=== PATIENT | female | born 1985 | race Caucasian/White ===

== ENCOUNTER 2016-08-24 12:39 | Emergency (ER) | payer BC, OTHER ==
[~2016-08-24] VITALS: Ht 165.1 cm; Wt 54.4 kg
[~2016-08-24 12:39] MED LIST: ALPR0.25 PO; CETI10CA PO; IBUP-1060 PO
[2016-08-24 13:15] VITALS: BP 117/64
[2016-08-24] MEDS ORDERED: PRED20TA PO (14:34)
--- NOTE | 2016-08-24 14:34 | PHYS DOC ---
Past Medical History Past Medical History: Anxiety, Asthma, Bronchitis, Pneumonia Past Surgical History: Lumbar Laminectomy, Tubal ligation Additional Past Surgical Histo: SINUS SURG X 2 Alcohol Use: Occasionally Drug Use: None Adult General Chief Complaint Chief Complaint: ALLERGIC REACTION [facility] HPI Patient is a 31 year old female presents emergency department stating that she' s had a rash for approximately one week. She states that this started her right hand and has progressed throughout her body. She denies any new soaps, new detergents new clothing new foods or any new medication. She states that she was out hiking when she noticed that she had a blister on her right hand. She states that the blister from the hand has resolved although she has the red raised areas throughout the rest of her body. She does state she has a slight sore throat. She denies any shortness of air difficulty breathing. She denies any drainage or discharge coming from any of the sites. Patient states she was seen at urgent care she was placed on a Medrol Dosepak and was prescribed topical medication with no relief. Patient states she did take some Benadryl which seemed to have helped with some of the discomfort. States that the rash itches. She denies any fever, chills or any nausea vomiting. Review of Systems Review of Systems Constitutional: Denies fever or chills [] Eyes: Denies change in visual acuity, redness, or eye pain [] HENT: Denies nasal congestion or sore throat [] Respiratory: Denies cough or shortness of breath [] Cardiovascular: No additional information not addressed in HPI [] GI: Denies abdominal pain, nausea, vomiting, bloody stools or diarrhea [] : Denies dysuria or hematuria [] Musculoskeletal: Denies back pain or joint pain [] Integument: rash denies skin lesions [] Neurologic: Denies headache, focal weakness or sensory changes [] Endocrine: Denies polyuria or polydipsia [] Allergies Allergies Allergies Coded Allergies Type Severity Reaction Last Updated Verified amoxicillin Allergy Intermediate RASH 01/29/15 No cephalexin Allergy Intermediate RASH 01/29/15 No latex Allergy Intermediate RASH 01/29/15 No Physical Exam Physical Exam Constitutional: Well developed, well nourished, no acute distress, non-toxic appearance. [] HENT: Normocephalic, atraumatic, bilateral external ears normal, oropharynx moist, no oral exudates, nose normal. [] Eyes: PERRLA, EOMI, conjunctiva normal, no discharge. [] Neck: Normal range of motion, no tenderness, supple, no stridor. [] Cardiovascular:Heart rate regular rhythm, no murmur [] Lungs & Thorax: Bilateral breath sounds clear to auscultation [] Abdomen: Bowel sounds normal, soft, no tenderness, no masses, no pulsatile masses. [] Skin: Warm, dry, no erythema. Patient presents with rash to the upper extremities and torso, No drainage, or discharge noted form the site. patients rash appears red raises pustule type. Back: No tenderness Extremities: No tenderness, no cyanosis, no clubbing, ROM intact, no edema. [] Neurologic: Alert and oriented X 3, normal motor function, normal sensory function, no focal deficits noted. [] Psychologic: Affect normal, judgement normal, mood normal. [] Current Patient Data Vital Signs Vital Signs Date Time Temp Pulse Resp B/P (MAP) Pulse Ox O2 Delivery O2 Flow Rate FiO2 08/24/16 13:15 98.0 70 18 95 Room Air 98.0 EKG EKG [] Radiology/Procedures Radiology/Procedures [] Course & Med Decision Making Course & Med Decision Making Pertinent Labs and Imaging studies reviewed. (See chart for details) Rapid strep negative. Patient will be placed on Prednisone with recommendations to take benadryl every 4-6 hours she was instructed this medication will cause drowsiness do not take if you need to be alert and oriented. Keep the areas clean dry and cool. Followup with primary care provider in 3-5 days. Return to emergency department as needed for sign and symptoms that become worse. Patient agree with discharge instructions, treatment regimen and followup recommendations. [] Dragon Disclaimer Dragon Disclaimer This electronic medical record was generated, in whole or in part, using a voice recognition dictation system. Departure Departure Impression: Primary Impression: Contact dermatitis Disposition: 01 HOME, SELF-CARE Condition: STABLE Referrals: MARCO COOPER MD (PCP) Patient Instructions: Contact Dermatitis, [id number] Additional Instructions: Activity as tolerated Medication as prescribed Benadryl 25 mg every 4-6 hours. This medication will cause drowsiness do not take if you need to be alert and oriented. Do not take your Claritin with Benadryl as this will cause decrease urine output and cause you to be thirsty Keep the areas clean cool and dry Followup with primary care provider in 3-5 days Return to emergency department as needed for signs and symptoms that become worse. Scripts Prednisone (PREDNISONE) 20 Mg Tablet 40 MG PO DAILY, #14 TAB Prov: BISI DAVALOS APRN 08/24/16 BISI DAVALOS APRN August 24, 2016 14:34
[2016-08-24] MEDS ORDERED: methylPREDNISolone SOD SUCC PF 125 MG/2 ML VIAL. IM ONE (14:45)
[2016-08-24 15:02] LABS: NEGATIVE OBC STREP NEG; POSITIVE OBC STREP POS
== END 2016-08-24 14:52 | disposition home or self-care (01) ==
LOC: ER 12:39
DX: L25.9 Unspecified contact dermatitis, unspecified cause (principal); J02.9 Acute pharyngitis, unspecified; J45.909 Unspecified asthma, uncomplicated; F41.9 Anxiety disorder, unspecified; Z87.01 Personal history of pneumonia (recurrent); Z98.890 Other specified postprocedural states; Z98.51 Tubal ligation status; Z88.1 Allergy status to other antibiotic agents; Z91.040 Latex allergy status
CPT/HCPCS: 87070; 87880; 96372; 99283; J2930

== ENCOUNTER 2017-01-15 17:28 | Emergency (ER) | payer OTHER ==
[~2017-01-15] VITALS: Ht 162.6 cm; Wt 54.4 kg
[~2017-01-15 17:28] MED LIST changes: +PRED20TA PO
[2017-01-15] MEDS ORDERED: IV NORMAL SALINE 1000ML BAG 1,000 ML IV SCH (18:06)
--- NOTE | 2017-01-15 18:07 | PHYS DOC ---
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 She states the pain started this morning and that has worsened throughout the day. The pain is more in her right upper quadrant. She's had 2 episodes of vomiting. No diarrhea. No recent travel. She did eat out last night at [employer]. She states she has similar pain to this "years ago" when she had "gallbladder issues ". She is not had any surgery on her abdomen. No blood in her emesis. No fever. Patient also just had extensive allergy testing performed by her program development specialist and she has "wheat allergy" which she states "might have flared up as well because I went off my diet plan this past week." She is intermittently breaking out in hives "and I couldn't keep my benadryl down." Review of Systems Review of Systems Constitutional: Denies fever or chills Eyes: Denies change in visual acuity, redness, or eye pain HENT: Denies nasal congestion or sore throat Respiratory: Denies cough or shortness of breath Cardiovascular: No chest pain GI: POS abdominal pain, POS nausea, vomiting, NO bloody stools or diarrhea : Denies dysuria or hematuria Musculoskeletal: Denies back pain or joint pain Integument: Denies rash or skin lesions Neurologic: Denies headache, focal weakness or sensory changes Current Medications Current Medications Current Medications Medications (Trade) Dose Ordered Sig/Mateusz Start Time Stop Time Status Last Admin Dose Admin Fentanyl Citrate (Fentanyl 2ml Vial) 50 mcg PRN Q15MIN PRN 01/15/17 18:15 01/16/17 18:14 01/15/17 18:20 50 MCG Ondansetron HCl (Zofran) 4 mg 1X ONCE 01/15/17 18:45 01/15/17 18:46 DC 01/15/17 18:21 4 MG Sodium Chloride 1,000 ml @ 1,000 mls/hr Q1H 01/15/17 18:06 01/15/17 19:05 01/15/17 18:18 1,000 MLS/HR Allergies Allergies Allergies Coded Allergies Type Severity Reaction Last Updated Verified amoxicillin Allergy Intermediate RASH 01/29/15 No cephalexin Allergy Intermediate RASH 01/29/15 No latex Allergy Intermediate RASH 01/29/15 No Physical Exam Physical Exam Constitutional: Well developed, well nourished, no acute distress, non-toxic appearance. HENT: Normocephalic, atraumatic, bilateral external ears normal, oropharynx moist, no oral exudates, nose normal. Eyes: PERRLA, EOMI, conjunctiva normal, no discharge. Neck: Normal range of motion, no tenderness, supple, no stridor. Cardiovascular:Heart rate regular rhythm, no murmur Lungs & Thorax: Bilateral breath sounds clear to auscultation Abdomen: Bowel sounds normal, soft, POS tenderness to right upper quadrant; no rebound or guarding, no masses, no pulsatile masses. Skin: Warm, dry, no erythema, no rash. Back: No tenderness, no CVA tenderness. Extremities: No tenderness, no cyanosis, no clubbing, ROM intact, no edema. Neurologic: Alert and oriented X 3, normal motor function, normal sensory function, no focal deficits noted. Psychologic: Affect normal, judgement normal, mood normal. Current Patient Data Vital Signs Vital Signs Date Time Temp Pulse Resp B/P (MAP) Pulse Ox O2 Delivery O2 Flow Rate FiO2 01/15/17 18:20 18 98 Room Air 01/15/17 17:59 97.8 69 132/90 (104) 97.8 Lab Values Laboratory Tests Test 01/15/17 17:51 01/15/17 18:01 01/15/17 18:04 Urine Collection Type Unknown Urine Color Yellow Urine Clarity Cloudy Urine pH 8.0 Urine Specific Armstrong 1.015 Urine Protein Negative mg/dL (NEG-TRACE) Urine Glucose (UA) Negative mg/dL (NEG) Urine Ketones (Stick) Negative mg/dL (NEG) Urine Blood Negative (NEG) Urine Nitrite Negative (NEG) Urine Bilirubin Negative (NEG) Urine Urobilinogen Dipstick 0.2 mg/dL (0.2 mg/dL) Urine Leukocyte Esterase Negative (NEG) Urine RBC 0 /HPF (0-2) Urine WBC 0 /HPF (0-4) Urine Squamous Epithelial Cells Mod /LPF Urine Amorphous Sediment Present /HPF Urine Bacteria Few /HPF (0-FEW) Urine Mucus Mod /LPF White Blood Count 10.6 x10^3/uL (4.0-11.0) Red Blood Count 4.24 x10^6/uL (3.50-5.40) Hemoglobin 14.0 g/dL (12.0-15.5) Hematocrit 41.1 % (36.0-47.0) Mean Corpuscular Volume 97 fL (79-100) Mean Corpuscular Hemoglobin 33 pg (25-35) Mean Corpuscular Hemoglobin Concent 34 g/dL (31-37) Red Cell Distribution Width 13.1 % (11.5-14.5) Platelet Count 301 x10^3/uL (140-400) Neutrophils (%) (Auto) 66 % (31-73) Lymphocytes (%) (Auto) 26 % (24-48) Monocytes (%) (Auto) 6 % (0-9) Eosinophils (%) (Auto) 1 % (0-3) Basophils (%) (Auto) 1 % (0-3) Neutrophils # (Auto) 7.1 x10^3uL (1.8-7.7) Lymphocytes # (Auto) 2.7 x10^3/uL (1.0-4.8) Monocytes # (Auto) 0.6 x10^3/uL (0.0-1.1) Eosinophils # (Auto) 0.1 x10^3/uL (0.0-0.7) Basophils # (Auto) 0.1 x10^3/uL (0.0-0.2) Sodium Level 143 mmol/L (136-145) Potassium Level 3.8 mmol/L (3.5-5.1) Chloride Level 105 mmol/L (98-107) Carbon Dioxide Level 30 mmol/L (21-32) Anion Gap 8 (6-14) Blood Urea Nitrogen 7 mg/dL (7-20) Creatinine 0.8 mg/dL (0.6-1.0) Estimated GFR (Cockcroft-Gault) 83.7 BUN/Creatinine Ratio 9 (6-20) Glucose Level 99 mg/dL (70-99) Calcium Level 9.7 mg/dL (8.5-10.1) Total Bilirubin 0.4 mg/dL (0.2-1.0) Aspartate Amino Transferase (AST) 18 U/L (15-37) Alanine Aminotransferase (ALT) 25 U/L (14-59) Alkaline Phosphatase 74 U/L (46-116) Total Protein 7.7 g/dL (6.4-8.2) Albumin 4.2 g/dL (3.4-5.0) Albumin/Globulin Ratio 1.2 (1.0-1.7) Lipase 137 U/L (73-393) POC Urine HCG, Qualitative Hcg negative (Negative) Laboratory Tests 01/15/17 18:01 Laboratory Tests 01/15/17 18:01 Course & Med Decision Making Course & Med Decision Making Reviewed prior records. My differential for abdominal pain includes but is not limited to appendicitis; cholelithiasis or cholecystitis; renal stones; ureterolithiasis; pancreatitis; urinary tract infection; bowel obstruction; irritable bowel, . IV NS, IV fentanyl and zofran. May be biliary colic. At 1900 PM: lab is unremarkable. No evidence of acute cholecystitis or pancreatitis. We'll treat symptomatically with dietary restrictions. She will need follow-up with her primary care physician and further outpatient evaluation with possibility of ultrasound or PIPIDA scan. Return if follow-up instructions were given to the patient and her stomach and other. I have spoken with the patient and/or caregivers. I have explained the patient' s condition, diagnosis and treatment plan based on the information available to me at this time. I have answered the patient's and/or caregiver's questions and addressed any concerns. The patient and/or caregivers have as good an understanding of the patient's diagnosis, condition and treatment plan as can be expected at this point. The patient's condition is stable and appropriate for discharge from the emergency department. The patient will pursue further outpatient evaluation with the primary care physician or other designated or consulting physician as outlined in the discharge instructions. The patient and/or caregivers are agreeable to this plan of care and follow-up instructions have been explained in detail. The patient and/or caregivers have received these instructions in written format and have expressed an understanding of the discharge instructions. The patient and/or caregivers are aware that any significant change in condition or worsening of symptoms should prompt an immediate return to this or the closest emergency department or a call to 911. Michael Disclaimer Dragon Disclaimer This electronic medical record was generated, in whole or in part, using a voice recognition dictation system. Departure Departure Impression: Primary Impression: Abdominal pain Additional Impressions: Nausea and vomiting Food allergy Disposition: 01 HOME, SELF-CARE Referrals: MARCO COOPER MD (PCP) Patient Instructions: Biliary Colic Additional Instructions: Monitoring your diet closely. Call Dr. Cooper's office in the morning to set up a follow-up appointment for further evaluation. Scripts Ondansetron (ZOFRAN ODT) 4 Mg Tab.rapdis 4 MG PO BID Y for NAUSEA/VOMITING, #10 TAB Prov: BEV PAULINO MD 01/15/17 Problem Qualifiers Primary Impression: Abdominal pain Abdominal location: right upper quadrant Qualified Codes: R10.11 - Right upper quadrant pain Additional Impressions: Nausea and vomiting Vomiting type: unspecified Vomiting Intractability: non-intractable Qualified Codes: R11.2 - Nausea with vomiting, unspecified BEV PAULINO MD Jan 15, 2017 18:07
[2017-01-15 18:12] LABS: BASO # 0.1 x10^3/uL (0.0-0.2); BASO % 1 % (0-3); EOS % 1 % (0-3); HEMATOCRIT 41.1 % (36.0-47.0); LYMPH # 2.7 x10^3/uL (1.0-4.8); LYMPH % 26 % (24-48); MEAN CORPUSCULAR HEMOGLOBIN 33 pg (25-35); MEAN CORPUSCULAR HGB CONC 34 g/dL (31-37); MEAN CORPUSCULAR VOLUME 97 fL (79-100); MONO % 6 % (0-9); NEUT % 66 % (31-73); PLATELET COUNT 301 x10^3/uL (140-400); RED BLOOD COUNT 4.24 x10^6/uL (3.50-5.40); RED CELL DISTRIBUTION WIDTH 13.1 % (11.5-14.5); WHITE BLOOD COUNT 10.6 x10^3/uL (4.0-11.0)
[2017-01-15 18:14] LABS: BILIRUBIN,URINE NEGATIVE (NEG); GLUCOSE,URINE NEGATIVE (NEG); NITRITE,URINE NEGATIVE (NEG); PROTEIN,URINE NEGATIVE (NEG-TRACE); UROBILINOGEN,URINE 0.2 mg/dL (0.2 mg/dL)
[2017-01-15] MEDS ORDERED: fentaNYL PF VIAL 100 MCG/2 ML VIAL IV PRN (18:15)
[2017-01-15 18:21] LABS: BACTERIA,URINE FEW /HPF (0-FEW); RBC,URINE 0 /HPF (0-2); SQUAMOUS EPITHELIAL CELL,UR MOD /LPF; WBC,URINE 0 /HPF (0-4)
[2017-01-15 18:37] LABS: CALCIUM 9.7 mg/dL (8.5-10.1); CREATININE 0.8 mg/dL (0.6-1.0); GFR 83.7; POTASSIUM 3.8 mmol/L (3.5-5.1)
[2017-01-15 18:43] LABS: ALBUMIN 4.2 g/dL (3.4-5.0); ALBUMIN/GLOBULIN RATIO 1.2 (1.0-1.7); TOTAL BILIRUBIN 0.4 mg/dL (0.2-1.0); TOTAL PROTEIN 7.7 g/dL (6.4-8.2)
[2017-01-15] MEDS ORDERED: ONDANSETRON PF 4 MG/2 ML VIAL. IV ONE (18:45)
[2017-01-15] MEDS ORDERED: ONDA4TAB10 PO (19:09)
[2017-01-15 19:25] VITALS: BP 133/90
[2017-01-15] MEDS ORDERED: fentaNYL PF VIAL 100 MCG/2 ML VIAL IV ONE (19:45)
[2017-01-15] MEDS ORDERED: diphenhydrAMINE 50 MG/ML VIAL IVP ONE (19:45)
== END 2017-01-15 19:32 | disposition home or self-care (01) ==
LOC: ER 17:28
DX: R10.11 Right upper quadrant pain (principal); R11.2 Nausea with vomiting, unspecified; J45.909 Unspecified asthma, uncomplicated; F17.210 Nicotine dependence, cigarettes, uncomplicated; T78.1XXA Other adverse food reactions, not elsewhere classified, initial encounter; X58.XXXA Exposure to other specified factors, initial encounter
CPT/HCPCS: 36415; 80053; 81001; 81025; 83690; 85025; 96361; 96374; 96375; 96376; 99284; J1200; J2405; J3010; J7030

== ENCOUNTER 2017-03-07 02:26 | Emergency (ER) | payer OTHER ==
[~2017-03-07 02:26] MED LIST changes: +ONDA4TAB10 PO
--- NOTE | 2017-03-07 03:24 | PHYS DOC ---
Past Medical History Past Medical History: No Pertinent History Additional Past Medical Histor: Vestibular Neuritis (Brain MRI neg 08/2015); alopecia Past Surgical History: Other Additional Past Surgical Histo: sinus Alcohol Use: Occasionally Drug Use: None Adult General Chief Complaint Chief Complaint: EARACHE/EAR PAIN [facility] HPI Patient is a 31 year old female who presents with sore throat and left ear pain. She states it woke her up tonight. She denies any fevers chills nausea or vomiting. Review of Systems Review of Systems Constitutional: Denies fever or chills [] Eyes: Denies change in visual acuity, redness, or eye pain [] HENT: Positive for nasal congestion and sore throat Respiratory: Denies cough or shortness of breath [] Cardiovascular: No additional information not addressed in HPI [] GI: Denies abdominal pain, nausea, vomiting, bloody stools or diarrhea [] : Denies dysuria or hematuria [] Musculoskeletal: Denies back pain or joint pain [] Integument: Denies rash or skin lesions [] Neurologic: Denies headache, focal weakness or sensory changes [] Endocrine: Denies polyuria or polydipsia [] All other systems were reviewed and found to be within normal limits, except as documented in this note. Current Medications Current Medications Current Medications Medications (Trade) Dose Ordered Sig/[facility] Start Time Stop Time Status Last Admin Dose Admin Acetaminophen (Tylenol) 1,000 mg 1X ONCE 03/07/17 03:30 03/07/17 03:31 DC 03/07/17 03:30 1,000 MG Azithromycin (Zithromax) 500 mg 1X ONCE 03/07/17 05:30 03/07/17 05:40 DC 03/07/17 05:30 500 MG Allergies Allergies Allergies Coded Allergies Type Severity Reaction Last Updated Verified amoxicillin Allergy Intermediate RASH 01/29/15 No cephalexin Allergy Intermediate RASH 01/29/15 No latex Allergy Intermediate RASH 01/29/15 No Physical Exam Physical Exam Constitutional: Well developed, well nourished, no acute distress, non-toxic appearance. [] HENT: Normocephalic, atraumatic, bilateral external ears normal, oropharynx moist, no oral exudates, nose normal. [] Eyes: PERRLA, EOMI, conjunctiva normal, no discharge. [] Neck: Normal range of motion, no tenderness, supple, no stridor. No anterior cervical lymphadenopathy appreciated Cardiovascular:Heart rate regular rhythm, no murmur [] Lungs & Thorax: Bilateral breath sounds clear to auscultation [] Abdomen: Bowel sounds normal, soft, no tenderness, no masses, no pulsatile masses. [] Skin: Warm, dry, no erythema, no rash. [] Back: No tenderness, no CVA tenderness. [] Extremities: No tenderness, no cyanosis, no clubbing, ROM intact, no edema. [] Neurologic: Alert and oriented X 3, normal motor function, normal sensory function, no focal deficits noted. [] Psychologic: Affect normal, judgement normal, mood normal. [] Current Patient Data Vital Signs Vital Signs Date Time Temp Pulse Resp B/P (MAP) Pulse Ox O2 Delivery O2 Flow Rate FiO2 03/07/17 05:35 98.0 69 110/64 (79) 99 98.0 03/07/17 02:50 18 Room Air Lab Values Laboratory Tests Test 03/07/17 03:48 Group A Streptococcus Rapid Positive (NEGATIVE) EKG EKG [] Radiology/Procedures Radiology/Procedures [] Impressions: Strep throat Course & Med Decision Making Course & Med Decision Making Pertinent Labs and Imaging studies reviewed. (See chart for details) Strep throat came back back positive. Patient has an allergy to penicillin and therefore she was discharged with a Z-Noe. Return precautions given. She is agreeable plan being discharged stable condition at this time. Dragon Disclaimer Dragon Disclaimer This electronic medical record was generated, in whole or in part, using a voice recognition dictation system. Departure Departure Impression: Primary Impression: Strep throat Disposition: 01 HOME, SELF-CARE Condition: STABLE Referrals: MARCO COOPER MD (PCP) Patient Instructions: Strep Throat Additional Instructions: You have strep throat need take antibiotic for the next 5 days. Return back to ER if you have trouble swallowing, breathing, high fevers, or other concerns Scripts Azithromycin (AZITHROMYCIN TABLET) 250 Mg Tablet 1 PKG PO UD, #6 TAB Prov: KEZIA BREWER MD 03/07/17 KEZIA BREWER MD Mar 07, 2017 03:24
[2017-03-07] MEDS ORDERED: ACETAMINOPHEN 500 MG TABLET PO ONE (03:30)
[2017-03-07] MEDS ORDERED: AZIT250T6 PO (05:28)
[2017-03-07] MEDS ORDERED: AZITHROMYCIN 250 MG TABLET. PO ONE (05:30)
[2017-03-07 05:35] VITALS: BP 110/64
[2017-03-07 07:46] LABS: NEGATIVE OBC STREP NEG; POSITIVE OBC STREP POS
== END 2017-03-07 05:41 | disposition home or self-care (01) ==
LOC: ER 02:26
DX: J02.0 Streptococcal pharyngitis (principal); H92.02 Otalgia, left ear; Z88.1 Allergy status to other antibiotic agents; Z88.0 Allergy status to penicillin; Z91.040 Latex allergy status
CPT/HCPCS: 87880; 99283; Q0144

== ENCOUNTER → 2017-04-14 | Outpatient (CLI) | payer OTHER | END | disposition home or self-care (01) | LOC: KCIC 11:22 | DX: G89.29 Other chronic pain (principal); M25.562 Pain in left knee; M25.561 Pain in right knee | CPT/HCPCS: 73562 ==

== ENCOUNTER → 2017-06-29 | Outpatient (CLI) | payer OTHER | END | disposition home or self-care (01) | LOC: KCIC MRI 08:58 | DX: J32.9 Chronic sinusitis, unspecified (principal) | CPT/HCPCS: 70551 ==

== ENCOUNTER 2017-08-16 10:31 | Inpatient (IN) | payer OTHER ==
[2017-08-16] MEDS: HYDROcodone/APAP 5/325MG 1 TAB TABLET PO ×2 (11:56→21:42)
[2017-08-16 12:07] LABS: ADD MAN DIFF? NO
[2017-08-16 12:11] LABS: BASO % 1 % (0-3); EOS # 0.1 x10^3/uL (0.0-0.7); EOS % 1 % (0-3); HEMATOCRIT 42.8 % (36.0-47.0); HEMOGLOBIN 14.8 g/dL (12.0-15.5); LYMPH % 33 % (24-48); MEAN CORPUSCULAR HEMOGLOBIN 34 pg (25-35); MEAN CORPUSCULAR HGB CONC 35 g/dL (31-37); MEAN CORPUSCULAR VOLUME 98 fL (79-100); MONO # 0.4 x10^3/uL (0.0-1.1); MONO % 6 % (0-9); NEUT # 3.6 x10^3uL (1.8-7.7); NEUT % 59 % (31-73); PLATELET COUNT 277 x10^3/uL (140-400); RED BLOOD COUNT 4.38 x10^6/uL (3.50-5.40); RED CELL DISTRIBUTION WIDTH 13.7 % (11.5-14.5); WHITE BLOOD COUNT 6.2 x10^3/uL (4.0-11.0)
[2017-08-16 12:21] LABS: ALBUMIN/GLOBULIN RATIO 1.2 (1.0-1.7); ALK PHOS 60 U/L (46-116); ALT (SGPT) 18 U/L (14-59); ANION GAP 9 (6-14); AST (SGOT) 12 U/L (15-37); BLOOD UREA NITROGEN 8 mg/dL (7-20); BUN/CREATININE RATIO 13 (6-20); CALCIUM 8.9 mg/dL (8.5-10.1); CARBON DIOXIDE 29 mmol/L (21-32); CHLORIDE 106 mmol/L (98-107); CREATININE 0.6 mg/dL (0.6-1.0); GFR 115.9; GLUCOSE 84 mg/dL (70-99); POTASSIUM 3.9 mmol/L (3.5-5.1); SODIUM 144 mmol/L (136-145); TOTAL BILIRUBIN 0.3 mg/dL (0.2-1.0); TOTAL PROTEIN 7.3 g/dL (6.4-8.2)
[2017-08-16] MEDS: fentaNYL PF VIAL 100 MCG/2 ML VIAL IV ×4 (13:13→21:42)
[2017-08-16] MEDS: IV DEXTROSE 5%-LACT RINGERS 1,000 ML IV (13:34)
[2017-08-16] MEDS: SINCALIDE IV (15:15)
[2017-08-16] MEDS: NORMAL SALINE IV (15:15)
[2017-08-16 17:07] LABS: BILIRUBIN,URINE NEGATIVE (NEG); CLARITY,URINE CLEAR; COLOR,URINE YELLOW; GLUCOSE,URINE NEGATIVE (NEG); NITRITE,URINE NEGATIVE (NEG); PROTEIN,URINE NEGATIVE (NEG-TRACE); UROBILINOGEN,URINE 0.2 mg/dL (0.2 mg/dL)
[2017-08-16 17:12] LABS: LIPASE 182 U/L (73-393)
[2017-08-16 17:25] LABS: AMORPHOUS SEDIMENT,UR PRESENT /HPF; BACTERIA,URINE 0 /HPF (0-FEW); RBC,URINE 0 /HPF (0-2); SQUAMOUS EPITHELIAL CELL,UR OCC /LPF; WBC,URINE OCC /HPF (0-4)
[2017-08-17] MEDS: fentaNYL PF VIAL 100 MCG/2 ML VIAL IV ×4 (04:16→21:09)
[2017-08-17] MEDS: IV DEXTROSE 5%-LACT RINGERS 1,000 ML IV ×3 (04:16→17:30)
[2017-08-17] MEDS: IV NORMAL SALINE 500ML BAG 500 ML IV (09:16)
[2017-08-17] MEDS: NICOTINE 7MG PATCH. TD (09:21)
[2017-08-17] MEDS: SUCRALFATE 1 GM TABLET. PO ×4 (09:21→21:09)
[2017-08-17] MEDS: PANTOPRAZOLE 40 MG TABLET.DR. PO (09:22)
[2017-08-17] MEDS: HYDROcodone/APAP 5/325MG 1 TAB TABLET PO (10:19)
[2017-08-17] MEDS ORDERED: PROCHLORPERAZINE 10 MG/2 ML VIAL. IV (10:45)
[2017-08-17] MEDS ORDERED: LIDOCAINE 1% PF 2 ML VIAL. ID ×2 (10:45→11:30)
[2017-08-17] MEDS ORDERED: fentaNYL PF VIAL 100 MCG/2 ML VIAL IV ×4 (10:45→11:30)
[2017-08-17] MEDS ORDERED: ONDANSETRON PF 4 MG/2 ML VIAL. IV (10:45)
[2017-08-17] MEDS ORDERED: MORPHINE SULFATE 4 MG/ML DISP.SYRIN. IV (10:45)
[2017-08-17] MEDS: IV RINGERS,LACTATED 1000ML 1,000 ML IV ×2 (11:22→11:25)
[2017-08-17] MEDS ORDERED: MIDAZOLAM HCL/PF 2 MG/2 ML VIAL. IV (11:30)
[2017-08-17] MEDS ORDERED: LIDOCAINE 2% PF Vial for OR 5 ML VIAL. ×2 (12:06→12:37)
[2017-08-17] MEDS ORDERED: PROPOFOL 0 ML IV (12:06)
[2017-08-17] MEDS ORDERED: MIDAZOLAM HCL/PF 2 MG/2 ML VIAL. (12:37)
[2017-08-17] MEDS ORDERED: DEXAMETHASONE SOD PHOS 20 MG/5 ML VIAL. (12:37)
[2017-08-17] MEDS ORDERED: fentaNYL PF VIAL 100 MCG/2 ML VIAL (12:37)
[2017-08-17] MEDS ORDERED: ROCURONIUM 50 MG/5 ML VIAL. (12:37)
[2017-08-17] MEDS ORDERED: ONDANSETRON PF 4 MG/2 ML VIAL. (12:37)
[2017-08-17] MEDS ORDERED: PROPOFOL 20 ML IV (12:37)
[2017-08-17 15:14] LABS: NEG OBC UR NEG; POS OBC UR POS; U PREG PATIENT NEGATIVE (NEG)
[2017-08-17] MEDS ORDERED: diphenhydrAMINE HCL 25 MG CAPSULE PO (18:45)
[2017-08-17] MEDS: diphenhydrAMINE ORAL ELIXIR 12.5 MG/5 ML ML PO (19:57)
[2017-08-18] MEDS: fentaNYL PF VIAL 100 MCG/2 ML VIAL IV ×3 (01:01→10:27)
[2017-08-18] MEDS: IV DEXTROSE 5%-LACT RINGERS 1,000 ML IV ×2 (05:05→13:30)
[2017-08-18] MEDS: SUCRALFATE 1 GM TABLET. PO ×2 (07:30→11:22)
[2017-08-18] MEDS: PANTOPRAZOLE 40 MG TABLET.DR. PO (07:30)
[2017-08-18] MEDS: NICOTINE 7MG PATCH. TD (10:27)
[2017-08-18] MEDS: diphenhydrAMINE ORAL ELIXIR 12.5 MG/5 ML ML PO (11:22)
== END 2017-08-18 15:40 | disposition home or self-care (01) | DRG 392 ==
LOC: 4 NORTH 10:31
PROC: 0DJ08ZZ Inspection of Upper Intestinal Tract, Via Natural or Artificial Opening Endoscopic (ICD-10-PCS; principal; 2017-08-17 12:28)
DX: K29.70 Gastritis, unspecified, without bleeding (principal); K31.84 Gastroparesis; M79.7 Fibromyalgia; Z98.51 Tubal ligation status; K21.9 Gastro-esophageal reflux disease without esophagitis; Z87.11 Personal history of peptic ulcer disease; F17.210 Nicotine dependence, cigarettes, uncomplicated
CPT/HCPCS: 36415; 76705; 78226; 78264; 80053; 81001; 81025; 83690; 85025; 96374; 96375; A9537; A9541; J1100; J2060; J2250; J2405; J2704; J2805; J3010; J7040; J7120

== ENCOUNTER 2018-02-26 12:09 | Emergency (ER) | payer OTHER ==
[~2018-02-26] VITALS: Ht 162.6 cm; Wt 52.2 kg
[~2018-02-26 12:09] MED LIST changes: +ALPR0.5T PO; +AZIT250T6 PO; +FINA1TAB3 PO; +GABA-585 PO; +OMEP40CA5 PO; +VENTOLIN HFA18 GM INH
[2018-02-26 12:32] VITALS: BP 125/67
[2018-02-26] MEDS ORDERED: DEXAMETHASONE 4 MG TABLET PO ONE (13:00)
[2018-02-26] MEDS ORDERED: AZIT250T PO (13:02)
[2018-02-26] MEDS ORDERED: GUAI473L PO (13:02)
[2018-02-26] MEDS ORDERED: PROAIR HFA8.5 GM INH (13:02)
--- NOTE | 2018-02-26 13:02 | PHYS DOC ---
Past Medical History Past Medical History: Asthma, Pneumonia, Other Additional Past Medical Histor: Vestibular Neuritis (Brain MRI neg 08/2015); alopecia Past Surgical History: Tubal ligation, Other Additional Past Surgical Histo: sinus Alcohol Use: Occasionally Drug Use: None Adult General Chief Complaint Chief Complaint: COUGH HPI HPI 32-year-old female presents with 3 day history of URI type symptoms including cough, nasal congestion, body aches, generalized malaise, and subjective fever/ chills. Denies known sick contacts. Patient reports history of pneumonia recently. Patient reports she is getting "steroid injections "for alopecia and other dermatological condition. Denies . Reports history of bilateral tubal ligation. Reports last menstral period was one week ago. Review of Systems Review of Systems Constitutional: Reports subjective fever and chills [] Eyes: Denies change in visual acuity, redness, or eye pain [] HENT: Reports nasal congestion and sore throat [] Respiratory: Reports cough; denies shortness of breath [] Cardiovascular: Denies chest pain or palpitations GI: Denies abdominal pain, nausea, vomiting, bloody stools or diarrhea [] : Denies dysuria or hematuria [] Musculoskeletal: Denies back pain or joint pain [] Integument: Denies rash or skin lesions [] Neurologic: Denies headache, focal weakness or sensory changes [] Complete systems were reviewed and found to be within normal limits, except as documented in this note. Current Medications Current Medications Current Medications Medications (Trade) Dose Ordered Sig/Mateusz Start Time Stop Time Status Last Admin Dose Admin Dexamethasone (Decadron) 10 mg 1X ONCE 02/26/18 13:00 02/26/18 13:01 DC 02/26/18 13:06 10 MG Allergies Allergies Allergies Coded Allergies Type Severity Reaction Last Updated Verified papaya Allergy Severe Swelling 08/17/17 Yes strawberry Allergy Severe 08/17/17 Yes amoxicillin Allergy Intermediate RASH 08/17/17 No cephalexin Allergy Intermediate RASH 08/17/17 No latex Allergy Intermediate RASH 08/17/17 No Uncoded Allergies Type Severity Reaction Last Updated Verified rudy lettuce Allergy Severe Swelling 08/16/17 Physical Exam Physical Exam Constitutional: Well developed, well nourished, no acute distress, non-toxic appearance. [] HENT: Normocephalic, atraumatic, bilateral TMs normal, oropharynx moist and nonerythematous, mild nasal congestion noted Eyes: PERRL, EOMI, conjunctiva normal, no discharge. [] Neck: Normal range of motion, no tenderness, supple, no meningeal signs Cardiovascular: Heart rate regular rhythm, no murmur [] Lungs & Thorax: Bilateral breath sounds clear to auscultation [] Skin: Warm, dry, no erythema, no rash. [] Neurologic: Alert and oriented X 3, no focal deficits noted. [] Psychologic: Affect normal, judgement normal, mood normal. [] Current Patient Data Vital Signs Vital Signs Date Time Temp Pulse Resp B/P (MAP) Pulse Ox O2 Delivery O2 Flow Rate FiO2 02/26/18 12:32 97.7 71 16 125/67 (86) 99 Room Air 97.7 EKG EKG [] Radiology/Procedures Radiology/Procedures [] Course & Med Decision Making Course & Med Decision Making Patient presents with history of present illness and physical exam consistent for acute bronchitis. Influenza testing not applicable as patient outside window of time for Tamiflu. Symptomatic treatment provided with oral steroid. Patient does report smoking history. Will prescribe antibiotic for possible supra infection. Patient stable for discharge with outpatient follow-up with PCP. Discussed findings and plan with patient, who acknowledges understanding and agreement. Dragon Disclaimer Dragon Disclaimer This electronic medical record was generated, in whole or in part, using a voice recognition dictation system. Departure Departure Impression: Primary Impression: Acute bronchitis Disposition: 01 HOME, SELF-CARE Condition: STABLE Referrals: MARCO COOPER MD (PCP) Patient Instructions: Acute Bronchitis, [id number] Scripts Guaifenesin/Codeine Phosphate (Guaifenesin-Codeine Syrup) 473 Ml Liquid 10 ML PO Q12HR PRN for COUGH, #150 LIQUID Prov: LAKSHMI BAKER DO 02/26/18 Azithromycin (ZITHROMAX) 250 Mg Tablet 1 PKG PO UD for bronchitis, #6 TAB Take 2 tablets on day 1 and then 1 tablet each day for the next 4 days as directed Prov: LAKSHMI BAKER DO 02/26/18 Albuterol Sulfate (PROAIR HFA INHALER) 8.5 Gm Hfa.aer.ad 1 PUFF INH PRN Q6HRS PRN for SHORTNESS OF BREATH, #1 INHALER 0 Refills Prov: LAKSHMI BAKER DO 02/26/18 Problem Qualifiers Primary Impression: Acute bronchitis Bronchitis organism: unspecified organism Qualified Codes: J20.9 - Acute bronchitis, unspecified LAKSHMI BAKER DO Feb 26, 2018 13:02
== END 2018-02-26 13:14 | disposition home or self-care (01) ==
LOC: ER 12:09
DX: J20.9 Acute bronchitis, unspecified (principal); M79.10 Myalgia, unspecified site; R53.81 Other malaise; R50.9 Fever, unspecified; J45.909 Unspecified asthma, uncomplicated; Z88.1 Allergy status to other antibiotic agents; Z91.040 Latex allergy status; Z91.018 Allergy to other foods
CPT/HCPCS: 99283; J8540

== ENCOUNTER → 2019-07-09 | Outpatient (CLI) | payer OTHER ==
[~2019-07-09] MED LIST changes: +ALBU2.5V8 INH; +AZIT250T PO; +GUAI473L PO; +OMEP40CA45 PO; -OMEP40CA5 PO
--- NOTE | 2019-07-09 12:11 | KCIC ---
Chest PA and lateral: Reason for examination: Cough, seasonal allergies, intermittent fever. Comparison is made to previous study dated 02/03/2008. The heart size is normal. Mediastinum is unremarkable. Lung kim are clear. No acute bony abnormalities are seen. Impression: No acute cardiopulmonary disease. Electronically signed by: Maribel Rojas MD (07/09/2019 12:08 PM) [id number]
== END | disposition home or self-care (01) ==
LOC: KCIC 11:12
PROVIDERS: ATTEND Family Medicine
DX: R05 Cough (principal); R50.9 Fever, unspecified
CPT/HCPCS: 71046